=== PATIENT | female | born 1970 | race Hispanic/Latino ===

== ENCOUNTER 2017-12-01 12:54 | Outpatient (CLI) | payer BC ==
--- NOTE | 2017-12-01 15:26 | CT ---
CT ABDOMEN AND PELVIS WITHOUT CONTRAST: HISTORY: Renal stone protocol. Pain. Right flank pain. History of renal stones. COMPARISON: None. FINDINGS: Lung bases are clear. No pericardial effusion. No nephroureterolithiasis or hydroureteral nephrosis. No secondary evidence of recently passed stone . No calculus is seen within the urinary bladder. There is a transversely oriented scar projecting over the lower abdomen. No free intraperitoneal gas or fluid. Noncontrast evaluation of the spleen, liver, and gallbladder unremarkable as well as of the pancreas and adrenal glands. No dilated loops of large or small bowel. The appendix is visualized and is normal. No adenopathy. IMPRESSION: 1. No nephroureterolithiasis or hydroureteral nephrosis. No secondary evidence of a recently passed stone. 2. No acute inflammatory process within the abdomen or pelvis. POS: [facility]
== END 2017-12-01 12:55 | disposition home or self-care (01) ==
LOC: TBSIIMAG 12:54
PROVIDERS: ATTEND Physician Assistant
DX: R31.9 Hematuria, unspecified (principal)
CPT/HCPCS: 74176

== ENCOUNTER 2019-08-29 12:21 | Observation (INO) | payer BC ==
--- NOTE | 2019-08-29 12:56 | RAD ---
XR Chest 1 View Portable HISTORY: Chest pain COMPARISON: 03/04/2014 FINDINGS: The heart size is normal. The lungs are well expanded without focal areas of consolidation, pneumothorax or pleural effusions. IMPRESSION: No radiographic evidence of acute cardiopulmonary process.
[2019-08-29] MEDS ORDERED: Nitroglycerin 2% Ointment 1 INCH/1 GM Packet ONE (12:58)
[2019-08-29] MEDS ORDERED: Aspirin Chewable 81 MG TAB ONE (12:58)
[2019-08-29 12:59] LABS: #Eosinphils 0.1 thou/uL (0.0-0.7); #Lymphocytes 2.1 thou/uL (1.20-3.40); #Monocytes 0.2 thou/uL (0.11-0.59); #Neutrophils 3.5 thou/uL (1.40-6.50); %Basophils 0.7 % (0.0-1.0); %Eosinophils 2.1 % (0.0-10.0); %Lymphocytes 34.8 % (21.0-51.0); %Monocytes 3.6 % (0.0-10.0); %Neutrophils 58.7 % (42.0-75.0); Hemoglobin 14.3 g/dL (12.0-16.0); Mean Corpuscular HGB CONC 34.3 g/dL (32.0-36.0); Mean Corpuscular Hemoglobin 32.6 pg (27.0-31.0); Mean Corpuscular Volume 95.1 fL (78.0-98.0); Mean Platelet Volume 8.2 fL (7.4-10.4); Platelet Count 248 thou/uL (130-400); RBC Distribution Width 11.9 % (11.5-14.5); Red Blood Cell (RBC) Count 4.37 mill/uL (4.20-5.40); White Blood Cell (WBC) Count 5.9 thou/uL (4.8-10.8)
[2019-08-29 13:00] LABS: BHCG - Serum Negative (NEGATIVE); Pregs Control Background? CLEAR/WHITE (CLR/WHITE); Pregs Control Bar Appear? YES (CONTROL BAR)
[2019-08-29 13:26] LABS: ALT (SGPT) 15 U/L (8-55); AST (SGOT) 19 U/L (5-34); Albumin 4.1 g/dL (3.5-5.0); Alkaline Phosphatase 60 U/L (40-110); Anion Gap 13 mmol/L (10-20); BUN (Urea Nitrogen) 7 mg/dL (7.0-18.7); Bilirubin, Total 0.9 mg/dL (0.2-1.2); Calc. Creatinine Clearance 0 mL/min (70-130); Calcium 9.1 mg/dL (7.8-10.44); Carbon Dioxide 24 mmol/L (22-29); Chloride 103 mmol/L (98-107); Estimated GFR-MDRD 73; Globulin 3.8 g/dL (2.4-3.5); Glucose 176 mg/dL (70-105); Potassium 3.7 mmol/L (3.5-5.1); Protein, Total 7.9 g/dL (6.0-8.3); Sodium 136 mmol/L (136-145)
[2019-08-29 16:27] LABS: Troponin I Less than 0.010 ng/mL (< 0.028)
[2019-08-29] MEDS ORDERED: HumaLOG 300 UNITS/3 ML VIAL SC PRN ×2 (16:48)
[2019-08-29] MEDS ORDERED: Dextrose 50% Abboject 50 ML SYRINGE SLOW IVP PRN (16:48)
[2019-08-29] MEDS ORDERED: Dextrose 5% in Water 1,000 ML IV PRN (16:48)
[2019-08-29 17:28] VITALS: BMI 26.4
--- NOTE | 2019-08-29 18:44 | HP ---
PRIMARY CARE PHYSICIAN: Tiffany Smith. CHIEF COMPLAINT: Chest pain. HISTORY OF PRESENT ILLNESS: The patient is a 49-year-old female with past medical history significant for diabetes. She presents to the ER today for chest pain, which has been intermittent since Wednesday, 3 days ago. She states that this occurs in the midsternal and upper epigastric area and at times it feels like someone is sitting on her chest. It comes and goes, not dependent on whether she is exerting herself or sitting still. At times, it has woken her up at night, where she feels like she could not catch her breath. She does say she is able to lie flat at night. Denies any swelling. Denies diaphoresis. Denies sick contacts. She does have some cramping in her stomach that causes nausea when the chest pain occurs at times. She called her doctor's office yesterday and they asked her go to the lab today at [place] and have lab work done and EKG. She was unable to wait though because she had to get to work, so she left there and was driving to work when the pain became too much and her family brought her here. She has not tried any medications for the pain. Today in the ER, they completed lab work, chest x-ray , and EKG. She received an inch of NTP and full dose aspirin. PAST MEDICAL HISTORY: Diabetes II. PAST SURGICAL HISTORY: Two C sections. ALLERGIES: CODEINE CAUSES ITCHINESS AND TRADJENTA. MEDICATIONS: 1. Trulicity. 2. Zoloft. 3. control Microgestin. SOCIAL HISTORY: The patient lives with her and 12-year-old son. She works at [employer]. She denies alcohol, tobacco, or drug use. FAMILY HISTORY: Mother at age 68 from heart disease. Sister had an NH at age 51. Multiple family members with history of diabetes type 2. REVIEW OF SYSTEMS: All other review of systems are negative unless noted in the HPI. PHYSICAL EXAMINATION: VITAL SIGNS: Blood pressure 125/79, pulse 87, respiratory rate 16, temperature 98.4, O2 saturation 99% on room air. GENERAL: No signs of acute distress. HEAD: Atraumatic and normocephalic. ENT: Moist mucous membranes. NECK: Normal range of motion. Trachea midline. RESPIRATORY: Clear to auscultation bilaterally. Equal chest expansion. No rhonchi. No wheezes. No rales. CARDIOVASCULAR: Regular rate and rhythm. No murmurs. No gallops. No rubs. ABDOMEN: Normal bowel sounds. No tenderness. No guarding. No rigidity. EXTREMITIES: No edema. Posterior tibial and pedal pulse intact. PSYCH: Normal affect, normal behavior. IMAGING STUDIES: EKG, sinus rhythm, 86. Chest x-ray, no radiographic evidence of acute cardiopulmonary process. LABORATORY DATA: White blood cells 5.9, hemoglobin 14.3, hematocrit 41.6. Sodium 136, potassium 3.7, creatinine 0.83, GFR 73, glucose 176. Initial troponin negative, second troponin negative. Negative test. IMPRESSION AND PLAN: 1. Chest pain. We will continue to monitor troponin levels. A stress test is planned for the morning. The patient has been educated over having nothing to eat or drink after midnight tonight. 2. Diabetes type 2. Monitor the patient's Accu-Cheks before meals and at bedtime, and cover with sliding scale insulin as needed. 3. Gastrointestinal prophylaxis with Protonix. 4. Deep venous thrombosis prophylaxis with SCDs. 5. The patient wishes to be a full code. Her surrogate decision maker is her , Jayme. The patient has been discussed with Dr. Mata. Job ID: [id number] MTDD
[2019-08-29 19:05] LABS: Troponin I Less than 0.010 ng/mL (< 0.028)
[2019-08-29] MEDS ORDERED: Acetaminophen 500 MG TAB PO PRN (20:20)
--- NOTE | 2019-08-30 08:21 | PDOC.HOSPP ---
- Subjective Encounter Date: 08/30/19 Encounter Time: 11:10 Subjective: Patient with another episode of chest pain, chest pressure, anxiety, and tingling in feet overnight. Vitals and telemetry normal during episode. Exercise stress test done this AM without significant EKG changes. Patient feeling normal now without any chest pain. States she has been under a lot of stress recently and very anxious. - Objective Vital Signs & Weight: Vital Signs (12 hours) Temp Pulse Resp BP BP Pulse Ox 08/30/19 07:05 98.2 F 88 16 118/64 98 08/30/19 04:00 98.2 F 78 18 122/62 100 Weight Weight 168 lb 11.2 oz I&O: 08/29/19 08/30/19 08/31/19 06:59 06:59 06:59 Intake Total 1919 Balance 1919 Result Diagrams: 08/29/19 12:38 08/29/19 12:38 Additional Labs: Accuchecks 08/29/19 21:13 POC Glucose 125 H Hospitalist ROS - Review of Systems Constitutional: denies: fever, chills Respiratory: denies: cough, shortness of breath Cardiovascular: denies: chest pain, palpitations Gastrointestinal: denies: nausea, vomiting, abdominal pain - Medication Medications: Active Medications Generic Name Dose Route Start Last Admin Trade Name Kwakuq PRN Reason Stop Dose Admin Acetaminophen 1,000 mg 08/29/19 20:20 08/29/19 20:44 Tylenol PO 1,000 mg Q8H PRN Administration Headache/Fever/Mild Pain (1-3) - Exam General Appearance: NAD, awake alert ENT: moist mucosa Heart: RRR, no murmur, no gallops, no rubs Respiratory: CTAB, no wheezes, no rales, no ronchi Gastrointestinal: soft, non-tender, non-distended, normal bowel sounds Psychiatric: normal affect, normal behavior, A&O x 3 Hosp A/P (1) Chest pain, rule out acute myocardial infarction Code(s): R07.9 - CHEST PAIN, UNSPECIFIED Status: Acute (2) Diabetes mellitus type 2 in nonobese Code(s): E11.9 - TYPE 2 DIABETES MELLITUS WITHOUT COMPLICATIONS Status: Chronic - Plan chest pain resolved, neg EKG and neg troponins x3 diabetic and strong family history exercise stress test negative. This doesn't have the best sensitivity especially in women, however given her atypical symptoms and negative workup her risk of significant CAD is low now. Will need cardiology followup outpatient and they can decide if she needs a nuclear stress test or other workup. mild hypercholesterolemia, will start low dose Atorvastatin. Will also give 2 weeks of PPI in case GI in eitiology. Patient's symptoms most consistent with panic attach. Will give Vistaril prn and have f/u with PCP. Will check d-dimer and if neg can d/c home. If positive will need CT angio.
[2019-08-30] MEDS ORDERED: Iopamidol 370 76% 100 ML VIAL ONE (08:50)
[2019-08-30] MEDS ORDERED: Aspirin 325 mg Enteric Coated Tablet PO SCH (09:00)
--- NOTE | 2019-08-30 13:32 | CT ---
CT PULMONARY ANGIOGRAM WITH IV CONTRAST AND 3D MIP RECONSTRUCTIONS: DATE: 08/30/2019. PROVIDED CLINICAL HISTORY: Chest pain and elevated D-dimer. FINDINGS: The heart, pericardium, and great vessels demonstrate an unremarkable CT appearance. There is no aminah dence for a central or segmental pulmonary embolus. The lungs are free of significant opacity. No pleural fluid or pneumothorax apparent. The airway appears patent and of normal caliber. There is no evidence for thoracic lymph node enlargement. The visualized portions of the upper abdomen appear unremarkable. The osseous structures demonstrate no concerning lytic or blastic lesions. IMPRESSION: No evidence for central or segmental pulmonary embolus. POS: ELISA
[2019-08-30 15:42] VITALS: BP 114/58; TEMP 98.9
[2019-08-30] MEDS ORDERED: Atorvastatin Calcium 10 MG TAB PO SCH (21:00)
--- NOTE | 2019-08-31 06:59 | DIS ---
DATE OF ADMISSION: 08/29/2019 DATE OF DISCHARGE: 08/30/2019 PRIMARY CARE PHYSICIAN: Tiffany Smith PA-C REASON FOR ADMISSION: Chest pain. DISCHARGE DIAGNOSES: 1. Chest pain, resolved, noncardiac. 2. Diabetes mellitus, type 2. 3. Anxiety with possible panic attacks. 4. Hypercholesterolemia. PROCEDURES: 1. Exercise stress test showing no evidence for ST-segment depression during a properly performed Alex protocol. 2. CT angiography of the chest with contrast showing no evidence for central or segmental pulmonary embolism. CONSULTATIONS: None. SUMMARY OF HOSPITAL COURSE: This is a 49-year-old white female with past medical history significant for diabetes. She presented to the ER for chest pain that has been intermittent, going on for 3 days, midsternal and upper epigastric. At times, felt like someone was sitting on her chest, also associated with anxiety and feeling of shortness of breath. She did state that she was under a lot of stress recently. The patient presented to emergency room. She had EKG and troponins done, that were all negative. She received nitroglycerin paste and full-dose aspirin. The nitroglycerin paste did cause headaches, but did not stop her from having an episode overnight. This was witnessed by the nurse, who stated it appeared like she was having a panic attack. She did have some tingling of her feet along with sensation of racing heart and sensation of shortness of breath. She had normal vital signs during the episode and it resolved spontaneously. The patient had an exercise stress test done the next day, which showed no EKG changes. She did have a D-dimer done, which was slightly elevated, so she had a CT angio done that was negative. The patient was asymptomatic at the time of discharge. She is being discharged on aspirin and Protonix along with addition of statin for her mild hypercholesterolemia and is going to follow up with Cardiology as an outpatient. DISCHARGE MANAGEMENT: Discharged home. ACTIVITY: As tolerated. DIET: Diabetic diet. FOLLOWUP: Follow up with Tiffany Smith in [address] De Souza the next week. At that time, he can assess whether or not he thinks she would benefit from a nuclear medicine stress test. DISCHARGE MEDICATIONS: 1. Aspirin 81 mg daily, 30 tablets dispensed. 2. Atorvastatin 10 mg at night, 30 tablets dispensed. 3. Hydroxyzine 25 mg every 8 hours as needed for anxiety, 30 capsules dispensed. 4. Protonix 40 mg daily, 30 tablets dispensed. 5. Trulicity 1.5 mg subcu q.7 days. 6. Zoloft 200 mg at night. Job ID: [id number]
== END 2019-08-30 18:30 | disposition home or self-care (01) ==
LOC: ERS 12:21 → ERHOLD 14:17 → 2NO 17:17
PROVIDERS: ADMIT Student in an Organized Health Care Education/Training Program; ATTEND Student in an Organized Health Care Education/Training Program
DX: R07.89 Other chest pain (principal); E11.9 Type 2 diabetes mellitus without complications; E78.00 Pure hypercholesterolemia, unspecified; F41.9 Anxiety disorder, unspecified; Z79.84 Long term (current) use of oral hypoglycemic drugs; Z79.899 Other long term (current) drug therapy; Z88.5 Allergy status to narcotic agent; Z88.8 Allergy status to other drugs, medicaments and biological substances
CPT/HCPCS: 36415; 36416; 71045; 71275; 80053; 80061; 83690; 84484; 84703; 85025; 85379; 93005; 93017; 94760; G0378; Q9967